=== PATIENT | male | born 1990 | race Caucasian/White ===

== ENCOUNTER 2025-09-02 09:14 | Emergency (ER) | payer OTHER ==
[~2025-09-02] VITALS: Ht 177.8 cm; Wt 95.8 kg
[2025-09-02] MEDS ORDERED: EXCETAB32 PO (09:24)
[2025-09-02] MEDS: NS (Normal Saline) 0.9% 1,000 ML IV ONE (10:42)
[2025-09-02] MEDS: PROCHLORPERAZINE 10MG/2ML VIAL IV ONE (10:43)
[2025-09-02] MEDS: diphenhydrAMINE 50 MG/ML VIAL IV ONE (10:43)
[2025-09-02 10:52] LABS: BASO # 0.0 10^3/uL (0.0-0.2); BASO % 0.4 % (0.0-1.0); EOS # 0.1 10^3/uL (0.0-0.5); EOS % 2.2 % (0.0-3.0); LYMPH # 1.4 10^3/uL (1.5-5.0); LYMPH % 26.9 % (24.0-44.0); MONO # 0.5 10^3/uL (0.0-0.8); MONO % 9.5 % (2.0-8.0); NEUTROPHILS # 3.1 10^3/uL (1.5-8.5); NEUTROPHILS % 60.8 % (36.0-66.0); PLATELET COUNT, AUTOMATED 223 10^3/uL (150-450)
[2025-09-02 11:06] LABS: INR 1.01
[2025-09-02 11:15] LABS: CALCIUM LEVEL 8.6 MG/DL (8.5-10.1); CARBON DIOXIDE LEVEL 29.0 MMOL/L (20-31); CHLORIDE LEVEL 102.0 MMOL/L (98-107); CREATININE FOR GFR 1.34 MG/DL (0.70-1.30); GLOMERULAR FILTRATION RATE 71.7 (>60); POTASSIUM SERUM 4.4 MMOL/L (3.5-5.1); SODIUM LEVEL 139.0 MMOL/L (136-145)
[2025-09-02] MEDS ORDERED: ISOVUE-370 76% 100 ML VIAL As Ordered ONE (11:29)
[2025-09-02] MEDS: KETOROLAC 30 MG/ML 1 ML VIAL IV ONE (11:59)
[2025-09-02 12:51] VITALS: O2SAT 98
[2025-09-02 13:10] VITALS: TEMP 97.7
[2025-09-02 13:13] VITALS: BP 99/54
== END 2025-09-02 13:15 | disposition home or self-care (01) ==
LOC: M ED 09:14
DX: R51.9 Headache, unspecified (principal); F17.290 Nicotine dependence, other tobacco product, uncomplicated; F10.10 Alcohol abuse, uncomplicated
CPT/HCPCS: 70450; 80048; 85025; 85610; 96361; 96374; 96375; 99284; J0780; J1200; J1885